=== PATIENT | female | born 1960 | race African-American/Black ===

== ENCOUNTER 2017-01-27 13:26 | Emergency (ER) | payer MEDICAID ==
[2017-01-27] VITALS (7 sets, daily range): BP systolic 193–219; BP diastolic 94–114; PULSE 90–116; RESP 18–20; TEMP 98; O2SAT 100
[~2017-01-27] VITALS: Ht 157.5 cm; Wt 46.5 kg
[~2017-01-27 13:26] MED LIST: ALBU17I; AZIT200S PO; FLOVENT110 MCG/A; IPRA18I; PRED20 PO; TOPR50TA PO
[2017-01-27] MEDS ORDERED: SODIUM CHLORID 0.9% 500 ML INJ 500 ML IV ONE (14:15)
[2017-01-27] MEDS ORDERED: SODIUM CHLORIDE 0.9% FLUSH 10 ML FLUSH IVF PRN (14:15)
[2017-01-27] MEDS ORDERED: AMLO5TAB2 PO (14:18)
[2017-01-27] MEDS ORDERED: DIOV160T6 PO (14:18)
[2017-01-27] MEDS ORDERED: CEPH500C PO (14:18)
[2017-01-27] MEDS ORDERED: TOPR50TA PO (14:18)
--- NOTE | 2017-01-27 14:26 | PD ---
HPI Chief Complaint: Hypertension Time Seen by Provider: 14:19 Travel History International Travel<30 days: No Contact w/Intl Traveler<30days: No Traveled to known affect area: No History of Present Illness HPI Patient comes in complaining of hypertension and elevated heart rate since starting amlodipine on 2 days ago. Patient states last dose last night. Patient states on Sunday she began having a sinus infection saw Dr. Platt started on antibiotics and instructed to come to the emergency department secondary to the patient's elevated blood pressure, patient went to see her primary care doctor on instead and was then started on amlodipine. Patient reports since starting amlodipine she has had an elevated heart rate and blood pressure. Patient states that she has been under more stress recently and believes this may be causing the elevated blood pressure. Patient states for sinus symptoms she has been taking cough drops and using Vicks VapoRub, denies any other [id number] medications. Denies any fevers , nausea, vomiting, chest pain or shortness of breath, change in vision, dizziness, headache,tingling anywhere, loss or change in bowel or bladder. Denies any cardiac issues other than her hypertension. Patient reports she does have a noncancerous mass/lesion on her lung. PFSH Past Medical History Hx Anticoagulant Therapy: No Asthma: Yes Autoimmune Disease: No Blood Disorders: No Anxiety: Yes Heart Rhythm Problems: No Cancer: No Cardiovascular Problems: Yes (HTN) High Cholesterol: No Chemotherapy: No Chest Pain: No Congestive Heart Failure: No COPD: No Cerebrovascular Accident: No Diabetes: No Diminished Hearing: No Endocrine: No Genitourinary: No Hypertension: Yes Immune Disorder: No Medical other: Yes (sinus infection) Musculoskeletal: No Neurologic: No Psychiatric: Yes Reproductive: No Respiratory: Yes (ASTHMA) Myocardial Infarction: No Sleep Apnea: No Tetanus Vaccination: Unknown ?: Not Menopausal: Yes Past Surgical History Abdominal Surgery: No AICD: No Arteriovenous Shunt: No Cardiac Surgery: No Section: Yes Ear Surgery: No Endocrine Surgery: No Eye Surgery: No Genitourinary Surgery: No Gynecologic Surgery: No Hysterectomy: No Insulin Pump: No Joint Replacement: No Oral Surgery: No Pacemaker: No Thoracic Surgery: No Other Surgery: Yes (STENT IN BILARY DUCT) Social History Alcohol Use: No Tobacco Use: No Substance Use: No Allergies-Medications (Allergen,Severity, Reaction): Coded Allergies: Codeine (Verified Allergy, Severe, 01/27/17) Clonidine (Verified Allergy, Intermediate, Dizziness, 01/27/17) Reported Meds & Prescriptions Reported Meds & Active Scripts Active Potassium Chloride CR (Potassium Chloride) 10 Meq Tab 10 Meq PO DAILY Hydrochlorothiazide 25 Mg Tab 25 Mg PO DAILY Reported Amlodipine (Amlodipine Besylate) 5 Mg Tab 5 Mg PO DAILY Cephalexin 500 Mg Cap 500 Mg PO Q12H Diovan (Valsartan) 160 Mg Tab 160 Mg PO BID Toprol XL (Metoprolol Succinate) 50 Mg Tab 50 Mg PO DAILY Review of Systems Except as stated in HPI: all other systems reviewed are Neg Physical Exam Narrative GENERAL: Well-developed, well nourished, in no acute distress, and non-ill appearing. SKIN: Focused skin assessment warm and dry. HEAD: Atraumatic. Normocephalic. EYES: Pupils equal and round. EOMI. No scleral icterus. No injection or drainage. ENT: No nasal bleeding or discharge. Mucous membranes pink and moist. Tympanic membranes pearly bautista bilaterally. Posterior pharynx nonerythematous and without exudate. Uvula is midline. No tenderness to facial sinuses to palpation. NECK: Trachea midline. No JVD. Supple. No nuclear rigidity. No cervical lymphadenopathy. CARDIOVASCULAR: Regular rate and rhythm. No murmur appreciated. RESPIRATORY: No accessory muscle use. No respiratory distress. Clear to auscultation. Breath sounds equal bilaterally. GASTROINTESTINAL: Abdomen soft, non-tender, nondistended. Hepatic and splenic margins not palpable. No pulsatile mass. MUSCULOSKELETAL: No obvious deformities. No clubbing. No cyanosis. No edema. Full range of motion. NEUROLOGICAL: Awake and alert. No obvious cranial nerve deficits. Motor grossly within normal limits. Normal speech. PSYCHIATRIC: Appropriate mood and affect; insight and judgment normal. Data Data Last Documented VS Vital Signs Date Time Temp Pulse Resp B/P Pulse Ox O2 Delivery O2 Flow Rate FiO2 01/27/17 16:37 97 193/94 01/27/17 15:23 18 100 Room Air 01/27/17 13:28 98.0 Orders Electrocardiogram (01/27/17 ) Basic Metabolic Panel (Bmp) (01/27/17 14:13) Ckmb (Isoenzyme) Profile (01/27/17 14:13) Complete Blood Count With Diff (01/27/17 14:13) Magnesium (Mg) (01/27/17 14:13) Prothrombin Time / Inr (Pt) (01/27/17 14:13) Act Partial Throm Time (Ptt) (01/27/17 14:13) Troponin I (01/27/17 14:13) Chest, Single Ap (01/27/17 14:13) Ecg Monitoring (01/27/17 14:13) Iv Access Insert/Monitor (01/27/17 14:13) Oximetry (01/27/17 14:13) Oxygen Administration (01/27/17 14:13) Sodium Chloride 0.9% Flush (Ns Flush) (01/27/17 14:15) Sodium Chlorid 0.9% 500 Ml Inj (Ns 500 M (01/27/17 14:15) Urinalysis - C+S If Indicated (01/27/17 14:22) Drug Screen, Random Urine (01/27/17 14:22) Labetalol Inj (Trandate Inj) (01/27/17 14:30) Metoprolol Tartrate (Lopressor) (01/27/17 14:30) CKMB (01/27/17 14:21) CKMB% (01/27/17 14:21) Labetalol Inj (Trandate Inj) (01/27/17 15:45) Potassium Chloride (Kcl) (01/27/17 15:45) Labs Laboratory Tests Test 01/27/17 01/27/17 14:21 14:47 White Blood Count 9.1 TH/MM3 Red Blood Count 4.57 MIL/MM3 Hemoglobin 13.9 GM/DL Hematocrit 39.4 % Mean Corpuscular Volume 86.3 FL Mean Corpuscular Hemoglobin 30.4 PG Mean Corpuscular Hemoglobin 35.2 % Concent Red Cell Distribution Width 13.4 % Platelet Count 203 TH/MM3 Mean Platelet Volume 7.6 FL Neutrophils (%) (Auto) 72.8 % Lymphocytes (%) (Auto) 21.3 % Monocytes (%) (Auto) 4.7 % Eosinophils (%) (Auto) 0.4 % Basophils (%) (Auto) 0.8 % Neutrophils # (Auto) 6.6 TH/MM3 Lymphocytes # (Auto) 1.9 TH/MM3 Monocytes # (Auto) 0.4 TH/MM3 Eosinophils # (Auto) 0.0 TH/MM3 Basophils # (Auto) 0.1 TH/MM3 CBC Comment DIFF FINAL Differential Comment Prothrombin Time 11.3 SEC Prothromb Time International 1.0 RATIO Ratio Activated Partial 27.5 SEC Thromboplast Time Sodium Level 131 MEQ/L Potassium Level 3.3 MEQ/L Chloride Level 94 MEQ/L Carbon Dioxide Level 25.9 MEQ/L Anion Gap 11 MEQ/L Blood Urea Nitrogen 5 MG/DL Creatinine 1.03 MG/DL Estimat Glomerular Filtration 67 ML/MIN Rate Random Glucose 129 MG/DL Calcium Level 9.7 MG/DL Magnesium Level 1.8 MG/DL Total Creatine Kinase 410 U/L Creatine Kinase MB 3.0 NG/ML Creatine Kinase MB % 0.7 % Troponin I LESS THAN 0.02 NG/ML Urine Color YELLOW Urine Turbidity CLEAR Urine pH 6.0 Urine Specific [place] 1.008 Urine Protein NEG mg/dL Urine Glucose (UA) NEG mg/dL Urine Ketones 10 mg/dL Urine Occult Blood NEG Urine Nitrite NEG Urine Bilirubin NEG Urine Urobilinogen LESS THAN 2.0 MG/DL Urine Leukocyte Esterase NEG Urine RBC 2 /hpf Urine WBC 1 /hpf Urine Squamous Epithelial 1 /hpf Cells Urine Hyaline Casts 6 /lpf Urine Mucus FEW /lpf Microscopic Urinalysis Comment CULT NOT INDICATED MDM Medical Decision Making Medical Screen Exam Complete: Yes Emergency Medical Condition: Yes Interpretation(s) EKG reviewed by Dr. Morales shows sinus tachycardia with ventricular rate of 105. No STEMI. Differential Diagnosis Adverse reaction, acute DE, hypertension urgency, electrolyte abnormality, other Narrative Course 1425 I discussed patient with Dr. Morales, recommends giving patient 20 mg of labetalol IV and 50 of Lopressor by mouth. 1530 I discussed patient with Dr. Morales after lab results and reviewing recent vitals, recommends giving patient additional 20 mg of labetalol IV. Blood pressure improves to add hydrochlorothiazide 25 mg with potassium supplement and follow-up as an outpatient. I discussed all findings and plan care of patient, who is agreeable with plan of care. Patient states she does not want stay in the hospital as she has a disabled child at home that she has to take care and that she can follow up with her primary care doctor on Sunday. The patient presented with a chief complaint of elevated blood pressures. The patient has a prior history of hypertension and states has been taking their antihypertensive medications. The patient has no symptoms as well. The patient denied headache, changes in vision, nausea, vomiting, dizziness, weakness or loss of sensation. The patient denied and chest, back or abdominal pain. The patient also denied any shortness of breath, dyspnea on exertion, orthopnea or PND. The patient denies any edema to extremities. The patients blood pressures at discharge were at an acceptable level. I discussed with the patient to follow up with a primary care physician for continued outpatient evaluation and potential adjustment of blood pressure medication at that time. Return warnings were given to the patient and the patient agreed with plan of care. Patient in no obvious distress upon re-evaluation. All pertinent laboratory/ Radiology result(s) discussed with patient. Discussed patient with Dr. Morales prior to discharge, who was in agreement with plan of care and disposition. Patient was asked if they wanted to speak to my attending, which the patient did not wish to do at this time. Any questions/concerns in reference to patient diagnosis/condition discussed and clarified prior to patient's discharge. Reinforced sheer importance of close follow up with patient's primary physician or primary care clinic. Instructed patient to return to ED immediately, if symptoms return/worsen. Pt showed understanding of above instructions. Further instructions and recommendations were detailed in discharge paperwork. Pt ambulated without difficulty out of ED at discharge. Diagnosis Primary Impression: Uncontrolled hypertension Additional Impressions: Tachycardia Hypokalemia Patient Instructions: General Instructions, Hypertension (DC), Hypokalemia (ED) , Tachycardia (GEN) Additional Instructions: Follow-up with your primary care physician on Sunday for reevaluation and adjustment of your medications. Take all medication as prescribed. Return to the emergency department if symptoms get worse. Med/Other Pt SpecificInfo: Prescription(s) given Scripts Potassium Chloride ER (Potassium Chloride CR)10 Meq Tab10 Meq PO DAILY #30 TAB Prov:Coy Morales MD 01/27/17 Hydrochlorothiazide 25 Mg Tab25 Mg PO DAILY #30 TAB Ref 0 Prov:Coy Morales MD 01/27/17 Disposition: 01 DISCHARGE HOME Condition: Stable Viet Durham Jan 27, 2017 14:26
[2017-01-27] MEDS ORDERED: LABETALOL HCL 100 MG/20 ML VIAL IV PUSH ONE ×2 (14:30→15:45)
[2017-01-27] MEDS ORDERED: METOPROLOL TARTRATE 50 MG TAB PO ONE (14:30)
[2017-01-27 14:35] LABS: AUTOMATED NEUTROPHIL # 6.6 TH/MM3 (1.8-7.7); BASOPHIL # 0.1 TH/MM3 (0-0.2); BASOPHIL % 0.8 % (0.0-2.0); EOSINOPHIL % 0.4 % (0.0-4.0); HEMATOCRIT 39.4 % (35.0-46.0); HEMO FLAGS DIFF FINAL; LYMPH % 21.3 % (9.0-44.0); LYMPHOCYTE # 1.9 TH/MM3 (1.0-4.8); MEAN CELL VOLUME 86.3 FL (80.0-100.0); MEAN CORPUSCULAR HEMOGLOBIN 30.4 PG (27.0-34.0); MEAN CORPUSCULAR HGB CONC 35.2 % (32.0-36.0); MONO % 4.7 % (0.0-8.0); NEUT % 72.8 % (16.0-70.0); PLATELET COUNT 203 TH/MM3 (150-450); RED BLOOD COUNT 4.57 MIL/MM3 (4.00-5.30); RED CELL DISTRIBUTION WIDTH 13.4 % (11.6-17.2); WHITE BLOOD COUNT 9.1 TH/MM3 (4.0-11.0)
[2017-01-27 14:44] LABS: APTT (PATIENT) 27.5 SEC (24.3-30.1); PROTHROMBIN TIME - PATIENT 11.3 SEC (9.8-11.6)
--- NOTE | 2017-01-27 14:54 | RADRPT ---
EXAM DATE/TIME: 01/27/2017 14:16 [facility] COMPARISON: CT THORAX W/O CONTRAST, September 30, 2015, 10:22. EXTERNAL COMPARISON : [facility] November 13, 2016 INDICATIONS : Palpitations, increased blood pressure. History of recent sinus infection. MEDICAL HISTORY : Asthma. SURGICAL HISTORY : section. ENCOUNTER: Initial ACUITY: 1 day PAIN SCORE: 0/10 LOCATION: Chest. FINDINGS: The lungs are hyperinflated and there is a stable appearance of bilateral apical pleural thickening, right greater than left. This appears unchanged as compared to the exam of September 2015. The remaind er the lungs appear clear. Heart size is normal. CONCLUSION: No evidence of acute cardiopulmonary disease. Stable appearing apical pleural thickening and bronchie ctasis. Magaly Raman MD on January 27, 2017 at 14:51 Board Certified Radiologist. This report was verified electronically.
[2017-01-27 15:09] LABS: ANION GAP 11 MEQ/L (5-15); BICARBONATE 25.9 MEQ/L (21.0-32.0); BLOOD UREA NITROGEN 5 MG/DL (7-18); CHLORIDE 94 MEQ/L (98-107); GLOMERULAR FILTRATION RATE 67 ML/MIN (>89); MAGNESIUM 1.8 MG/DL (1.5-2.5); POTASSIUM 3.3 MEQ/L (3.5-5.1); SODIUM (NA) 131 MEQ/L (136-145)
[2017-01-27 15:13] LABS: CREATINE KINASE 410 U/L (26-192)
[2017-01-27 15:35] LABS: BLOOD, URINE NEG (NEG); COMMENT (UR) CULT NOT INDICATED; CULTURE IF INDICATED CULT NOT INDICATED; GLUCOSE,URINE NEG (NEG); HYALINE CAST, URINE 6 /lpf (RARE); KETONE, URINE 10 mg/dL (NEG); MUCUS URINE FEW /lpf (OCC); NITRITE,URINE NEG (NEG); SQUAMOUS EPITHELIAL CELL URINE 1 /hpf (0-5); URINE COLOR YELLOW (YELLW/STRAW)
[2017-01-27] MEDS ORDERED: POTASSIUM CHLORIDE 20 MEQ CONTROLLED RELEASE TAB PO ONE (15:45)
[2017-01-27] MEDS ORDERED: POTA10TA8 PO (16:23)
[2017-01-27] MEDS ORDERED: HYDR25TA5 PO (16:23)
[2017-01-27 22:18] LABS: AMPHETAMINE, URINE NEG (NEG); BARBITURATES, URINE NEG (NEG); COCAINE, URINE NEG (NEG)
--- NOTE | 2017-01-28 10:23 | EKG ---
Date Performed: 01/27/2017 Time Performed: 14:17:04 PTAGE: 56 years EKG: SINUS TACHYCARDIA WITH SHORT UT INTERVAL WITH OCCASIONAL VENTRICULAR PREMATURE COMPLEXES PO SSIBLE RIGHT VENTRICULAR CONDUCTION DELAY ABNORMAL RHYTHM ECG Compared to prior tracing no significan t change PREVIOUS TRACING : 05/21/2004 16.35 DOCTOR: Jailyn Mosher Interpretating Date/Time 01/28/2017 10:22:23
== END 2017-01-27 17:00 | disposition home or self-care (01) ==
LOC: NEPE 13:26
DX: I10 Essential (primary) hypertension (principal); R00.0 Tachycardia, unspecified; E87.6 Hypokalemia; J45.909 Unspecified asthma, uncomplicated; Z79.899 Other long term (current) drug therapy
CPT/HCPCS: 71010; 80048; 80307; 81001; 82550; 82552; 83735; 84484; 85025; 85610; 85730; 93005; 96361; 96374; 96376; 99285; J7040

== ENCOUNTER 2017-01-28 20:43 | Emergency (ER) | payer MEDICAID ==
[~2017-01-28] VITALS: Ht 157.5 cm; Wt 47.0 kg
[~2017-01-28 20:43] MED LIST changes: +AMLO5TAB2 PO; +CEPH500C PO; +DIOV160T6 PO; +HYDR25TA5 PO; +POTA10TA8 PO
[2017-01-28 20:46] VITALS: BP 220/106; PULSE 103; RESP 18; TEMP 98.8; O2SAT 99
--- NOTE | 2017-01-28 20:52 | PD ---
Physical Exam Date Seen by Provider: Jan 28, 2017 Time Seen by Provider: 20:50 Narrative 56 YOBF C/O HTN . SEEN YEST FOR THE SAME BP BACK UP. NO CP/SOB. NO F/C,N/V. ON ANTIBIOTICS FOR SINUS INFECTION VS NOTED. PT AWAITING BED PLACEMENT. Data Data Last Documented VS Vital Signs Date Time Temp Pulse Resp B/P Pulse Ox O2 Delivery O2 Flow Rate FiO2 01/28/17 20:46 98.8 103 18 220/106 99 Room Air [facility] Medical Record Reviewed: Yes Supervised Visit with MARGOTH: Yes Jordan Valentine Jan 28, 2017 20:52
--- NOTE | 2017-01-28 21:39 | PD ---
HPI Chief Complaint: Hypertension Time Seen by Provider: 21:39 Travel History International Travel<30 days: No Contact w/Intl Traveler<30days: No Traveled to known affect area: No History of Present Illness HPI 56-year-old female with a history of hypertension and asthma presents to the emergency department for evaluation of elevated blood pressure. Patient was seen in our emergency department yesterday for the same. The patient states that 6 days ago she began to have a sinus infection and was prescribed an antibiotic. States that her sinus infection has improved since taking the antibiotic. States that she only used Vicks vapor rub and cough drops for symptomatic treatment. States that when she went to the doctor on her blood pressure was noted to be elevated so they started her on amlodipine daily. States that she took the amlodipine for 2 days and the first day her blood pressure went down but the second day her blood pressure was still elevated which caused her to be concerned so she came to the emergency department. When I saw her here yesterday they gave her medication which brought her blood pressure down and told her to stop taking amlodipine and prescribed her HCTZ. States that she cannot take HCTZ because it causes her potassium to drop too low, this is happened to her in the past. States that today she has only taken her Diovan today, has not taken her Toprol tonight. She did not take either of the amlodipine or the HCTZ today. She is here because her blood pressure still elevated. Denies any medical complaints. Denies any chest pain, shortness of breath, abdominal pain, nausea, vomiting, lightheadedness, dizziness, headache, numbness or tingling, weakness. She does state that she has some life stressors and anxiety and thinks that this is exacerbating her blood pressure. No other complaints. PFSH Past Medical History Hx Anticoagulant Therapy: No Asthma: Yes Autoimmune Disease: No Blood Disorders: No Anxiety: Yes Heart Rhythm Problems: No Cancer: No Cardiovascular Problems: Yes (HTN) High Cholesterol: No Chemotherapy: No Chest Pain: No Congestive Heart Failure: No COPD: No Cerebrovascular Accident: No Diabetes: No Diminished Hearing: No Endocrine: No Genitourinary: No Hypertension: Yes Immune Disorder: No Musculoskeletal: No Neurologic: No Psychiatric: Yes Reproductive: No Respiratory: Yes (ASTHMA) Myocardial Infarction: No Sleep Apnea: No Menopausal: Yes Past Surgical History Abdominal Surgery: No AICD: No Arteriovenous Shunt: No Cardiac Surgery: No Section: Yes Ear Surgery: No Endocrine Surgery: No Eye Surgery: No Genitourinary Surgery: No Gynecologic Surgery: No Hysterectomy: No Insulin Pump: No Joint Replacement: No Oral Surgery: No Pacemaker: No Thoracic Surgery: No Other Surgery: Yes (STENT IN BILARY DUCT) Social History Alcohol Use: No Tobacco Use: No Substance Use: No Allergies-Medications (Allergen,Severity, Reaction): Coded Allergies: Codeine (Verified Allergy, Severe, 01/28/17) Clonidine (Verified Allergy, Intermediate, Dizziness, 01/28/17) Reported Meds & Prescriptions Reported Meds & Active Scripts Active Potassium Chloride CR (Potassium Chloride) 10 Meq Tab 10 Meq PO DAILY Hydrochlorothiazide 25 Mg Tab 25 Mg PO DAILY Reported Amlodipine (Amlodipine Besylate) 5 Mg Tab 5 Mg PO DAILY Cephalexin 500 Mg Cap 500 Mg PO Q12H Diovan (Valsartan) 160 Mg Tab 160 Mg PO BID Toprol XL (Metoprolol Succinate) 50 Mg Tab 50 Mg PO DAILY Review of Systems Except as stated in HPI: all other systems reviewed are Neg Physical Exam Narrative GENERAL: Well-nourished and well-developed pleasant female patient in no acute distress who is nontoxic appearing. SKIN: Warm and dry. HEAD: Normocephalic and atraumatic. EYES: No injection, drainage, or hyphema noted. PERRLA. EOMI. ENT: No nasal drainage noted. Oropharynx is clear. NECK: Supple and the trachea is midline. CARDIOVASCULAR: Regular rate and rhythm. RESPIRATORY: Breath sounds are equal bilaterally with no accessory muscle use, wheezing, rhonchi, or crackles. GASTROINTESTINAL: Abdomen is soft, non-tender, and nondistended. MUSCULOSKELETAL: No obvious deformities, swelling, cyanosis, or ecchymosis is present throughout the upper and lower extremities. Patient has full range of motion without any signs of neurovascular compromise. NEUROLOGICAL: Awake, alert, and oriented. Normal speech and gait. Cranial nerves are grossly intact. Data Data Last Documented VS Vital Signs Date Time Temp Pulse Resp B/P Pulse Ox O2 Delivery O2 Flow Rate FiO2 01/28/17 22:12 106 18 219/109 100 Room Air 01/28/17 20:46 98.8 Orders Labetalol Inj (Trandate Inj) (01/28/17 21:45) Metoprolol Succinate Er (Toprol Xl) (01/28/17 21:45) Amlodipine (Norvasc) (01/28/17 22:00) MDM Medical Decision Making Medical Screen Exam Complete: Yes Emergency Medical Condition: Yes Differential Diagnosis Hypertension versus poorly controlled versus medication noncompliance versus anxiety Narrative Course 56-year-old female is brought to the emergency department for evaluation of a blood pressure. Patient is afebrile. She is tachycardic with a heart rate of 103 bpm. She is hypertensive with blood pressure of 220/106. She has no medical complaints. Physical examination is unremarkable. Labs were performed yesterday that were unremarkable for any acute abnormalities. The patient has only taken 1 of her regularly scheduled blood pressure medications today. I discussed the case with my attending physician Dr. Hooper who is aware of the patient's blood pressure reading and recommends giving her her nighttime dose of Toprol XL and Amlodipine. He also recommends she continue to take the amlodipine daily for the next week and to follow-up with her PCP this week in office for recheck. He discussed at length this treatment plan with the patient and family and she is agreeable and comfortable with this plan. Diagnosis Primary Impression: Uncontrolled hypertension Referrals: Primary Care Physician Patient Instructions: General Instructions, Hypertension (ED) Additional Instructions: Continue your Diovan and Toprol as prescribed. Take Amlodipine daily as prescribed. Take blood pressure reading once daily and follow-up with your Primary Care this week. Return to the ED for any acute worsening of symptoms. Med/Other Pt SpecificInfo: No Change to Meds Disposition: 01 DISCHARGE HOME Condition: Stable Amber Pardo Jan 28, 2017 21:39
[2017-01-28] MEDS ORDERED: METOPROLOL SUCCINATE 50 MG EXTENDED RELEASE TAB PO ONE (21:45)
[2017-01-28] MEDS ORDERED: LABETALOL HCL 100 MG/20 ML VIAL IV PUSH ONE (21:45)
[2017-01-28] MEDS ORDERED: amLODIPine BESYLATE 5 MG TAB PO ONE (22:00)
[2017-01-28 22:12] VITALS: BP 219/109; PULSE 106; RESP 18; O2SAT 100
--- NOTE | 2017-01-28 22:33 | PD ---
Data Data Last Documented VS Vital Signs Date Time Temp Pulse Resp B/P Pulse Ox O2 Delivery O2 Flow Rate FiO2 01/28/17 22:12 106 18 219/109 100 Room Air 01/28/17 20:46 98.8 Orders Labetalol Inj (Trandate Inj) (01/28/17 21:45) Metoprolol Succinate Er (Toprol Xl) (01/28/17 21:45) Amlodipine (Norvasc) (01/28/17 22:00) [facility] Supervised Visit with MARGOTH: Yes Narrative Course 56 year-old woman with a somatic elevated blood pressure. The been tingling with her medications for the past several days. At this point she really just taking her arb, and is due for her beta brien tonight. She is not taking thiazide diuretic recommended yesterday, or the amlodipine was recommended before that. She states that she's had adverse reactions to the thiazide diuretic in the past. She denies any symptoms at all. No chest pain. No trouble breathing. No headache. At this point I recommend at least 7-10 days on his stable blood pressure regimen while keeping a blood pressure log at home. She has no indication of hypertensive emergency or hypertensive crisis necessitating immediate or emergent lowering of her blood pressure. My recommendation is that she continue her ARB, her beta brien, and amlodipine 5 mg daily. I recommended that she keep a log of her blood pressures twice a day. I recommended she do this for one to 2 weeks and follow-up with her primary care physician. Diagnosis Primary Impression: Uncontrolled hypertension Referrals: Primary Care Physician Patient Instructions: General Instructions, Hypertension (ED) Departure Forms: Tests/Procedures Additional Instruction: Continue your Diovan and Toprol as prescribed. Take Amlodipine daily as prescribed. Take blood pressure reading once daily and follow-up with your Primary Care this week. Return to the ED for any acute worsening of symptoms. Disposition: 01 DISCHARGE HOME Condition: Stable Marcus Hooper MD Jan 28, 2017 22:32
== END 2017-01-28 22:20 | disposition home or self-care (01) ==
LOC: NEPC 20:43
DX: I10 Essential (primary) hypertension (principal); J45.909 Unspecified asthma, uncomplicated; F41.9 Anxiety disorder, unspecified; Z79.899 Other long term (current) drug therapy
CPT/HCPCS: 96374